=== PATIENT | female | born 1995 | race Two or more races ===

== ENCOUNTER 2017-11-07 00:02 | Emergency (ER) | payer OTHER ==
[2017-11-07 01:10] VITALS: BP 113/76; PULSE 80; TEMP 98.1; BMI 27.4
[2017-11-07] MEDS ORDERED: SODIUM CHLORIDE 0.9% 500 ML INFUS.BAG IV ONE (02:08)
[2017-11-07] MEDS ORDERED: METOCLOPRAMIDE HCL INJECTION 10 MG/2 ML VIAL IVPB ONE (02:08)
--- NOTE | 2017-11-07 02:20 | PDOC ---
History of Present Illness - General Chief Complaint: Weakness Stated Complaint: WEAKNESS, BLOOD PRESSURE PROBLEM Time Seen by Provider: 11/07/17 01:28 History Source: Patient - History of Present Illness Initial Comments: 11/07/17 03:11 21 year old female Visiting [place] from [place] reports that she is been to [facility] yesterday for same and similar complaint. Patient reports that yesterday she was feeling headache generalized numbness of body, patient reports that she has multiple stresses in her life currently with 2 children under 3 years old. Patient had a completely negative workup at [place] and was prescribed Xanax for anxiety. Past History - Past Medical History Allergies/Adverse Reactions: Allergies Allergy/AdvReac Type Severity Reaction Status Date / Time No Known Allergies Allergy Verified 11/07/17 01:09 Home Medications: Ambulatory Orders NK [No Known Home Medication] 12/11/15 Anemia: Yes Asthma: Yes Cancer: No Cardiac Disorders: No COPD: No Diabetes: No HTN: No Seizures: No Thyroid Disease: No - Immunization History Immunization Up to Date: Yes - Suicide/Smoking/Psychosocial Hx Smoking History: Never smoked Have you smoked in the past 12 months: No Information on smoking cessation initiated: No Hx Alcohol Use: No Drug/Substance Use Hx: No Substance Use Type: None Hx Substance Use Treatment: No *Physical Exam - Vital Signs Last Vital Signs Temp Pulse Resp BP Pulse Ox 98.1 F 80 20 113/76 99 11/07/17 00:45 11/07/17 00:45 11/07/17 00:45 11/07/17 00:45 11/07/17 00:45 - Physical Exam General Appearance: Yes: Appropriately Dressed Medical Decision Making - Medical Decision Making 11/07/17 03:48 patient now feels better, will d.c home *DC/Admit/Observation/Transfer Diagnosis at time of Disposition: Headache Qualifiers: Headache type: tension-type Headache chronicity pattern: unspecified pattern Intractability: not intractable Qualified Code(s): G44.209 - Tension-type headache, unspecified, not intractable - Discharge Dispostion Disposition: HOME - Referrals Referrals: ON STAFF,NOT [Primary Care Provider] - - Patient Instructions Printed Discharge Instructions: Tension Headache Additional Instructions: drink plenty of fluids. take tylenol or ibuprofen every 6 hours as needed for pain. follow up with your doctor as soon as possible. return to the ER if symptoms worsen. - Post Discharge Activity Forms/Work/School Notes: Back to Work
[2017-11-07 02:46] LABS: HCG,QUALITATIVE URINE NEGATIVE
[2017-11-07] MEDS ORDERED: METOCLOPRAMIDE HCL INJECTION 10 MG/2 ML VIAL ONE (02:51)
[2017-11-07 02:52] LABS: URINE APPEARANCE SLCLOUDY; URINE BILIRUBIN NEGATIVE (<2.0 mg/dL); URINE COLOR YELLOW; URINE GLUCOSE (UA) NEGATIVE (NEGATIVE); URINE KETONE NEGATIVE (NEGATIVE); URINE LEUK ESTERASE NEGATIVE (NEGATIVE); URINE NITRITE NEGATIVE (NEGATIVE); URINE PROTEIN NEGATIVE (NEGATIVE); URINE UROBILINOGEN 4.0 E.U/dl mg/dL (0.2-1.0)
[2017-11-07 02:58] LABS: EPI CELLS RARE /HPF (FEW); URINE BACTERIA FEW /hpf (NONE SEEN); URINE MUCUS RARE
[2017-11-07] MEDS ORDERED: KETOROLAC TROMETHAMINE 30 MG/1 ML VIAL IVPUSH ONE (03:02)
[2017-11-07] MEDS ORDERED: KETOROLAC TROMETHAMINE 30 MG/1 ML VIAL ONE (03:06)
== END 2017-11-07 04:13 | disposition home or self-care (01) ==
LOC: JER 00:02
PROC: 3E0337Z Introduction of Electrolytic and Water Balance Substance into Peripheral Vein, Percutaneous Approach (ICD-10-PCS; principal; 2017-11-07)
PROC: 3E0333Z Introduction of Anti-inflammatory into Peripheral Vein, Percutaneous Approach (ICD-10-PCS; 2017-11-07)
PROC: 3E033GC Introduction of Other Therapeutic Substance into Peripheral Vein, Percutaneous Approach (ICD-10-PCS; 2017-11-07)
DX: G44.209 Tension-type headache, unspecified, not intractable (principal); J45.909 Unspecified asthma, uncomplicated; D64.9 Anemia, unspecified
CPT/HCPCS: 81003; 81015; 84703; 99284-25

== ENCOUNTER 2019-12-02 13:12 | Inpatient (IN) | payer OTHER ==
[2019-12-02 14:01] VITALS: BMI 47.4
[2019-12-02 14:26] LABS: BASO % 0.2 % (0-2.0); EOS % 2.5 % (0-4.5); HEMATOCRIT 29.3 % (32.4-45.2); HEMOGLOBIN 9.5 GM/dL (10.7-15.3); MCHC 32.6 g/dl (32.0-36.0); MEAN CELL VOLUME 82.8 fl (80-96); MEAN PLT VOLUME 9.5 fl (7.5-11.1); MONO % 5.4 % (3.8-10.2); NEUT % 76.9 % (42.8-82.8); PLATELET COUNT 171 K/MM3 (134-434); RBC 3.53 M/mm3 (3.60-5.2); RDW 17.8 % (11.6-15.6); WHITE BLOOD COUNT 9.1 K/mm3 (4.0-10.0)
[2019-12-02 14:34] LABS: INR 0.97 (0.83-1.09); PROTHROMBIN TIME (PATIENT) 11.4 SEC (9.7-13.0)
[2019-12-02 14:36] LABS: ACTIVATED PTT 28.1 SECONDS (25.2-36.5)
[2019-12-02 14:50] LABS: ALBUMIN 2.5 g/dl (3.4-5.0); BILIRUBIN,TOTAL 0.6 mg/dL (0.2-1); BLOOD UREA NITROGEN 9.6 mg/dL (7-18); CALCIUM 8.5 mg/dL (8.5-10.1); CREATININE 0.6 mg/dL (0.55-1.3); POTASSIUM 3.6 mmol/L (3.5-5.1); TOT PROT 5.9 g/dl (6.4-8.2)
--- NOTE | 2019-12-02 15:07 | HP ---
Past Medical History - Primary Care Physician PCP:: Braulio Smith E - Admission Chief Complaint: contractions History of Present Illness: Late transfer to my practice, high risk . Previous c/s x 2. GDM. Observed on monitor. Ctx q 4 min. Pt. feels them as painful. 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 No: Ascites, Cancer, Constipation, Crohn's Disease, Diverticulitis, Esophageal Varices, Gastritis, GERD, GI Bleed, Hemorrhoids, Hiatal Hernia, Inflamatory Bowel Disease, Irritable Bowel Disease, Pancreatitis, Peptic Ulcer Disease, Ulcerative Colitis, Other Hepatobiliary: No: Cirrhosis, Cholelithiasis, Cholecystitis, Choledocholithiasis, Hepatitis A, Hepatitis B, Hepatitis C, Other Renal/: No: Renal Failure, Renal Inusuff, BPH, Cancer, Hematuria, Hemodialysis, Neurogenic Bladder, Renal Calculi, UTI, Other Reproductive: No: Ectopic , Endometriosis, Fibroids, PID, Polycystic Ovary Syndrome, Postmenopausal, Other ...: 5 ...Para: 2 ...Term: 2 ...Spon : 1 ...Induced : 1 ...Living Children: 2 ... Weeks Gestation by Dates: 38.4 ...EDC by Debbie: 12/10/19 Heme/Onc: Yes: Anemia. No: B12 Deficiency, Bleeding Disorder, Cancer, Current Chemotherapy, Current Radiation Therapy, Hemochromatosis, Hypercoaguable State, Myeloproliferative Synd, Sickle Cell Disease, Sickle Cell Trait, Thrombocytopenia, Other Infectious Disease: No: AIDS, C-Diff, Herpes Zoster, HIV, MRSA, STD's, T uberculosis, VREF, Other Psych: No: Addictions, Anxiety, Bipolar, Depression, Panic, Psychosis, Schizophrenia, Other Musculoskeletal: No: Bursitis, Chronic low back pain, Hemiparesis, Hemiplegia, Osteoarthritis, Paraplegia, Other Rheumatology: No: Fibromyalgia, Gout, Lupus, Rheumatoid Arthritis, Sarcoidosis, Vasculitis, Other ENT: No: Allergic Rhinitis, Sinusitis, Other Endocrine: Yes: Other (Obesity) Dermatology: No: Basal Cell, Cellulitis, Eczema, Melanoma, Psoriasis, Squamous Cell, Other - Past Surgical History Past Surgical History: Yes: None Hx Myomectomy: No Hx Transabdominal Cerclage: No - Smoking History Smoking history: Never smoked Have you smoked in the past 12 months: No - Alcohol/Substance Use Hx Alcohol Use: No History of Substance Use: reports: None - Social History ADL: Independent History of Recent Travel: No Home Medications - Allergies Allergies/Adverse Reactions: Allergies Allergy/AdvReac Type Severity Reaction Status Date / Time No Known Allergies Allergy Verified 12/02/19 15:51 - Home Medications Home Medications: Ambulatory Orders Mv-Mn/Iron/FA/Herbal/Digestive [ One Tablet] 1 each PO DAILY 11/10/19 Ibuprofen [Motrin -] 600 mg PO Q6H PRN #20 tablet MDD 5 12/03/19 oxyCODONE HCL [Roxicodone -] 5 mg PO Q6H PRN #15 tablet MDD 5 12/03/19 Family Medical History Family History: Unremarkable Review of Systems - Review of Systems Constitutional: reports: No Symptoms Eyes: reports: No Symptoms HENT: reports: No Symptoms Neck: reports: No Symptoms Cardiovascular: reports: No Symptoms Respiratory: reports: No Symptoms Gastrointestinal: reports: No Symptoms Genitourinary: reports: No Symptoms Breasts: reports: No Symptoms Reported Musculoskeletal: reports: No Symptoms Integumentary: reports: No Symptoms Neurological: reports: No Symptoms Endocrine: reports: No Symptoms Hematology/Lymphatic: reports: No Symptoms Psychiatric: reports: No Symptoms Physical Exam - Maternity Vital Signs: Vital Signs Temperature 98.3 F 12/02/19 14:00 Pulse Rate 76 12/02/19 14:00 Respiratory Rate 18 12/02/19 14:00 Blood Pressure 148/57 L 12/02/19 14:00 O2 Sat by Pulse Oximetry (%) Constitutional: Yes: Well Nourished, No Distress, Calm Eyes: Yes: WNL, Conjunctiva Clear, EOM Intact HENT: Yes: WNL, Atraumatic, Normocephalic Neck: Yes: WNL, Supple, Trachea Midline Cardiovascular: Yes: WNL, Regular Rate and Rhythm Breast(s): Yes: WNL - Abdominal Exam/OB Fundal Height: 42 Number of Fetuses: Single Presentation: Vertex Contractions: Yes Regularity: Regular Intensity: Mild/Mod Monitor Mode: External Heart Rate (range): 135 Heart Rate Location: [facility] Category: I Accelerations: Uniform Decelerations: None - Vaginal Exam/OB Vaginal Bleeding: No Speculum Exam: No Dilatation (cm): 0 Effacement (%): 20 Amniotic Membrane Status: Intact Presentation: Vertex/Position Station: -2 - Physical Exam Musculoskeletal: Yes: WNL Extremities: Yes: WNL Integumentary: Yes: WNL ...Motor Strength: WNL Psychiatric: Yes: WNL - Labs Lab Results: CBC, BMP 12/02/19 13:54 12/02/19 13:54 Problem List - Problems (1) Term Code(s): Z34.90 - ENCNTR FOR SUPRVSN OF NORMAL , UNSP, UNSP TRIMESTER (2) Active labor at term Code(s): [id number] - (3) Previous section Code(s): Z98.891 - HISTORY OF UTERINE SCAR FROM PREVIOUS SURGERY Assessment/Plan Term gestation in early labor. Fully discussed w pt. For repeat c/section. Procedure, technique, all risks and possible complications discussed with pt. who understands and consents. Consent signed.
[2019-12-02] MEDS ORDERED: ELECTROLYTE-148 SOLN 500 ML IV ONE (15:30)
[2019-12-02] MEDS ORDERED: CITRIC ACID/SODIUM CITRATE 30 ML UNIT-DOSE CUP PO ONE (15:30)
[2019-12-02] MEDS ORDERED: ONDANSETRON 4 MG/2 ML VIAL IVPUSH PRN (16:48)
[2019-12-02] MEDS ORDERED: morphine SULFATE/PF 0.5 MG/ML (2cc Syringe - QUVA) EP ONE (16:48)
[2019-12-02] MEDS ORDERED: morphine SULFATE/PF 0.5 MG/ML (2cc Syringe - QUVA) ONE (17:18)
[2019-12-02] MEDS ORDERED: ePHEDrine SULFATE 50 MG/1 ML AMPULE ONE (17:20)
[2019-12-02] MEDS ORDERED: OXYTOCIN 10 UNITS/ML VIAL ONE (17:36)
--- NOTE | 2019-12-02 18:24 | PN ---
Delivery - Delivery Section: Repeat, Low Flap Transverse Type of Anesthesia: Spinal EBL (cc): 600 Delivery, Single - Stages of Labor Date of Delivery: 12/02/19 Time of Delivery: 17:41 Time Placenta Delivered: 17:42 - Condition of Infant Palliative Senior Np/Product Marketing Programs Manager Present: Yes Name: Basil Castellanos Gender: Female Weight: 7 lb 8 oz Position: OA Total Hours ROM (Hrs/Mins): 1M - 1 Minute Total Score: 9 5 Minutes Total Score: 9 - [place] Feeding Plan Initial Plan: Elected not to breastfeed exclusively throughout hospitalization Remarks - Remarks Remarks: Uneventful repeat c/section. Keloid removed. DAVID No complications.
[2019-12-02] MEDS ORDERED: OXYTOCIN 20 UNITS in 0.9% NS 20 UNIT/1,000 ML INFUS.BAG IV ONE (18:36)
[2019-12-02] MEDS ORDERED: METHYLERGONOVINE MALEATE 0.2 MG/1 ML AMP IM PRN (18:38)
[2019-12-02] MEDS ORDERED: IBUPROFEN 800 MG/8 ML IJ IVPB PRN (18:38)
[2019-12-02] MEDS ORDERED: ACETAMINOPHEN 1000 MG/100 ML VIAL (NON FORMULARY) IVPB PRN (18:42)
[2019-12-02] MEDS ORDERED: OXYTOCIN 20 UNITS in 0.9% NS 1000 ML INFUS.BAG IV ONE (18:43)
[2019-12-02] MEDS ORDERED: OXYTOCIN 20 UNITS in 0.9% NS 20 UNIT/1,000 ML INFUS.BAG IV SCH (19:00)
--- NOTE | 2019-12-02 20:31 | SURG ---
Surgery Quality Measurement Specialist Note Quality Measurement Specialist: Gordo Martinez PA-C Date of Service: 12/02/19 Diagnosis: Full term Procedure: Repeat, Low Flap Transverse section I was present for the entirety of the operative procedure. For further detail, please refer to operative report. Visit type - Case Type Case Type: Scheduled - New patient This patient is new to me today: Yes Date on this admission: 12/02/19
--- NOTE | 2019-12-03 00:29 | OP ---
DATE OF OPERATION: 12/02/2019 PREOPERATIVE DIAGNOSIS: 1. Intrauterine 38 weeks and 6 days. 2. Previous section x2. 3. Early labor. POSTOPERATIVE DIAGNOSIS: 1. Intrauterine 38 weeks and 6 days. 2. Previous section x2. 3. Early labor. 4. Omental peritoneal adhesions. 5. Keloid. 6. Low segment "window." SURGEON: Phil Toledo MD. SOCIAL MEDIA MANAGER: IZAIAH Garrido. ANESTHESIOLOGIST: Lopez He MD. GLAZIER APPRENTICE: Basil Castellanos MD. PROCEDURE AND FINDINGS: Under excellent spinal block, in dorsal supine position, with mild left lateral tilt, routine prep and drape was carried out. Old keloid resulting from 2 previous incisions was excised and excision was carried out in a wedge-like fashion down to the fascia. Fascia was divided transversely, and rectus muscles were dissected off the fascia, and in the midline. The peritoneum was entered in the upper part of the incision and extended vertically. Term uterus was noted. Adnexa were subsequently seen and were within normal limits. A low segment was distended with clear window measuring about 1 cm with amniotic fluid showing through it. Bladder flap was incised transversely and peeled off the lower segment. Hysterotomy was done through the uterine window and extended laterally using bandage scissors. Amniotic sac was ruptured, and clear amniotic fluid was noted. Infant was then delivered through the hysterotomy. It was a girl who cried and breathed spontaneously. Cord was divided, and baby was handed over to the boat dispatcher. Cord was clamped with delay. Apgars were 9 and 9. Birthweight was 7 pounds, 8 ounces. Placenta was removed from the uterine cavity, and cavity was cleaned. Cervical os was dilated. Hysterotomy was closed with continuous running Biosyn 0 interlocking suture. Closure was excellent, and hemostasis was complete. Uterus was placed in the abdomen. Omental adhesions were noted upon entry to the anterior peritoneal wall were then identified and carefully divided. Bleeding points were secured. Omentum was set free. Count was correct. Abdomen was closed in layers with peritoneum was closed with Biosyn 2-0 suture. Fascia was closed with continuous running Vicryl 1 suture. Subcutaneous tissue was approximated with 3-0 Vicryl interrupted sutures and skin was approximated with V-Loc 3-0 running sutures and Steri-Strips. Blood loss was 600 mL. Patient withstood the procedure very well and was transferred to the PACU, comfortable and stable. PHIL TOLEDO MD [id number] MTDD
[2019-12-03] MEDS: CEFAZOLIN 1 GM/D5W 1 GM/50 ML BAG IVPB SCH ×3 (02:14→17:15)
--- NOTE | 2019-12-03 09:06 | PN ---
Progress Note, Physician Chief Complaint: s/p c section post op day one History of Present Illness: under spinal anesthesia with duramorph for post op analgesia - Current Medication List Current Medications: Active Medications Acetaminophen (Ofirmev Injection -) 1,000 mg IVPB Q6H PRN PRN Reason: PAIN LEVEL 4 - 6 Stop: 12/03/19 18:42 Bisacodyl (Dulcolax Suppository -) 10 mg RC PRN PRN PRN Reason: CONSTIPATION Diphenhydramine HCl (Benadryl Injection -) 25 mg IVPUSH Q4H PRN PRN Reason: Pruritis Cefazolin Sodium (Ancef 1 Gm Premixed Ivpb -) 1 gm in 50 mls @ 100 mls/hr IVPB Q8H-IV YOBANI Stop: 12/04/19 01:59 Last Admin: 12/03/19 02:14 Dose: 100 mls/hr Documented by: Oxytocin/Sodium Chloride (Normal Saline+20 Units Oxytocin -) 20 unit in 1,000 mls @ 125 mls/hr IV ASDIR YOBANI Ibuprofen (Motrin -) 600 mg PO Q4H PRN PRN Reason: PAIN LEVEL 1 - 3 Ibuprofen (Caldolor Injection -) 800 mg IVPB Q8H PRN PRN Reason: PAIN LEVEL 1-5 Last Admin: 12/03/19 00:48 Dose: 800 mg Documented by: Methylergonovine Maleate (Methergine Injection -) 0.2 mg IM Q4H PRN PRN Reason: Excessive Bleeding (L&D) Ondansetron HCl (Zofran Injection) 4 mg IVPUSH Q4H PRN PRN Reason: NAUSEA Simethicone (Mylicon -) 80 mg PO Q4H PRN PRN Reason: GAS - Objective Vital Signs: Vital Signs Temperature 98.1 F 12/03/19 06:06 Pulse Rate 91 H 12/03/19 06:06 Respiratory Rate 18 12/03/19 07:00 Blood Pressure 135/81 12/03/19 06:06 O2 Sat by Pulse Oximetry (%) 100 12/02/19 20:00 Constitutional: Yes: Well Nourished Cardiovascular: Yes: WNL Respiratory: Yes: WNL Gastrointestinal: Yes: WNL Labs: CBC, BMP 12/02/19 13:54 INR, PTT INR 0.97 (0.83-1.09) 12/02/19 13:54 Assessment/Plan Noadverse effects of anesthetic, pain controlled, no nausea or vomiting, dept of anesthesia will sign off care at this time
[2019-12-03 09:14] LABS: BASO % 0.1 % (0-2.0); HEMATOCRIT 25.4 % (32.4-45.2); HEMOGLOBIN 8.2 GM/dL (10.7-15.3); LYMPH % 10.1 % (8-40); MCH 27.1 pg (25.7-33.7); MCHC 32.2 g/dl (32.0-36.0); MEAN PLT VOLUME 9.9 fl (7.5-11.1); MONO % 7.4 % (3.8-10.2); NEUT % 81.4 % (42.8-82.8); PLATELET COUNT 131 K/MM3 (134-434); RBC 3.03 M/mm3 (3.60-5.2); RDW 17.5 % (11.6-15.6); WHITE BLOOD COUNT 8.1 K/mm3 (4.0-10.0)
[2019-12-03] MEDS: SIMETHICONE 80 MG TAB.CHEW (FP) PO PRN ×2 (09:41→21:43)
[2019-12-03] MEDS: IBUPROFEN 600 MG TABLET (FP) PO PRN ×2 (09:41→21:42)
--- NOTE | 2019-12-03 11:10 | PN ---
Progress Note (short form) - Note Progress Note: POD 1, s/p c section Pt seen and examined. Reports she is doing well. No pain yet (likely due to duramorph spinal), has not been oob. black in place. Tolerating regaulr diet. Denies cp/sob, n/v/d. Vital Signs Temp 98.6 F 12/03/19 10:00 Pulse 89 12/03/19 10:00 Resp 18 12/03/19 10:00 BP 120/76 12/03/19 10:00 Pulse Ox 100 12/02/19 20:00 Intake & Output 12/02/19 12/02/19 12/03/19 11:59 23:59 11:59 Intake Total 1500 1300 Output Total 300 Balance 1500 1000 Weight 285 lb Intake: IV 1500 1300 NORMAL SALINE+20 UNITS 500 1300 OXYTOCIN - 20 unit In 1, 000 ml @ 125 mls/hr IV ASDIR YOBANI Rx#:[id number] Plasma-Lyte 148 - 500 ml 1000 @ 250 mls/hr IV ONCE ONE Rx#:[id number] Output: Urine 300 Black 300 Other: Voiding Method Indwelling Catheter Toilet Height 5 ft 5 in Body Mass Index (BMI) 47.4 Weight 7 lb 8 oz Length 19 in CBC, BMP 12/03/19 07:58 12/02/19 13:54 Gen: awake, alert, nad Resp: unlabored on RA Abdo: soft, + ttp at inicision site (appropriate to status), steri-strips c/d/i, no bleeding noted, no erythema, no drainage ExT; b/l calf soft/nt/ no edema noted A/P: 23 y/o F w/ no significant PMHx a/w early labor, now POD 1, s/p repeat c section Afebrile, vss -Black out this AM, tov -Oob as tolerated -Reg diet -Pain control -BF support/oracle distribution consultant prn -bowel regimen -zofran prn n/v -dvt prophylaxis with b/l scds and early ambulation -scripts sent to [facility] pharmacy d/w attending Dr Smith
[2019-12-03] MEDS ORDERED: oxyCODONE HCL 5 MG TABLET PO PRN (11:13)
[2019-12-03] MEDS ORDERED: BISACODYL 10 MG SUPP.RECT RC PRN (18:38)
--- NOTE | 2019-12-03 21:34 | PN ---
Progress Note (short form) - Note Progress Note: POD # 1. Doing well.Pain under control. No BM yet. May shower. Problem List - Problems (1) Term Code(s): Z34.90 - ENCNTR FOR SUPRVSN OF NORMAL , UNSP, UNSP TRIMESTER (2) Active labor at term Code(s): [id number] - (3) Previous section Code(s): Z98.891 - HISTORY OF UTERINE SCAR FROM PREVIOUS SURGERY
[2019-12-04] MEDS: SIMETHICONE 80 MG TAB.CHEW (FP) PO PRN ×2 (05:16→10:51)
[2019-12-04] MEDS: IBUPROFEN 600 MG TABLET (FP) PO PRN ×2 (05:16→10:51)
--- NOTE | 2019-12-04 07:28 | PN ---
Progress Note (short form) - Note Progress Note: POD # 2. Doing well. Feels much better. Flatus pos. OOB, showered. PE OK. Abd. soft. Incision clean and dry. No CVA, extrem. T. I/P: good recovery. Problem List - Problems (1) Term Code(s): Z34.90 - ENCNTR FOR SUPRVSN OF NORMAL , UNSP, UNSP TRIMESTER (2) Active labor at term Code(s): [id number] - (3) Previous section Code(s): Z98.891 - HISTORY OF UTERINE SCAR FROM PREVIOUS SURGERY
[2019-12-04] MEDS ORDERED: ACETAMINOPHEN 325 MG TABLET (FP) PO PRN (07:30)
--- NOTE | 2019-12-04 07:41 | DS ---
Physical Exam-TECHNICAL SUPPORT ENGINEER Vital Signs: Vital Signs Temperature 98.0 F 12/03/19 21:02 Pulse Rate 100 H 12/03/19 21:02 Respiratory Rate 20 12/03/19 21:02 Blood Pressure 133/78 12/03/19 21:02 O2 Sat by Pulse Oximetry (%) 98 12/03/19 11:50 Constitutional: Yes: Well Nourished, No Distress, Calm Eyes: Yes: WNL, Conjunctiva Clear, EOM Intact HENT: Yes: WNL, Atraumatic, Normocephalic Neck: Yes: WNL, Supple, Trachea Midline Cardiovascular: Yes: WNL, Regular Rate and Rhythm Respiratory: Yes: WNL, Regular, CTA Bilaterally Gastrointestinal: Yes: WNL ...Rectal Exam: Yes: WNL Renal/: Yes: WNL Uterus: Yes: Normal, Firm ....Post : Yes: Slight lochia rubra (Incision clean and dry.) Breast(s): Yes: WNL Musculoskeletal: Yes: WNL Extremities: Yes: WNL Integumentary: Yes: WNL Neurological: Yes: WNL, Alert, Oriented ...Motor Strength: WNL Psychiatric: Yes: WNL, Alert, Oriented Labs: CBC, BMP 12/03/19 07:58 12/02/19 13:54 Delivery - Delivery Section: Repeat, Low Flap Transverse Type of Anesthesia: Spinal EBL (cc): 600 Delivery, Single - Stages of Labor Date of Delivery: 12/02/19 Time of Delivery: 17:41 Time Placenta Delivered: 17:42 - Condition of Judicial Clerk/Roller Leveler Present: Yes Name: Basil Castellanos Infant Gender: Female Weight: 7 lb 8 oz Position: OA Total Hours ROM (Hrs/Mins): 1M - 1 Minute Total Score: 9 5 Minutes Total Score: 9 - [place] Feeding Plan Initial Plan: Elected not to breastfeed exclusively throughout hospitalization Remarks - Remarks Remarks: Good recovery. Stable, no need for transfusion. Trying to nurse. Discharge Summary Problems reviewed: Yes Reason For Visit: Current Active Problems Active labor at term (Acute) Previous section (Acute) Term (Acute) Condition: Stable - Instructions Diet, Activity, Other Instructions: Discharge Instructions: Wound care You have steri-strips over your incision. Leave these in place. They will peel off in the next 7 to 10 days. Do Not peel them off. You may shower after surgery. If there are tapes present on the skin, they can get wet. When showering, allow soap and water to run over the incision, do not scrub the incision. Pat dry well after showering. You may continue to use the abdominal binder for comfort. When coughing, sneezing or getting up it is helpful to hold a pillow against the incision for comfort. Diet There are no dietary restrictions. Eat healthy, high-fiber foods. Drink 6 to 8 glasses of liquid each day. This will assist in keeping your bowels are regular. You may want to take an over the counter stool softener such as DulcoEase as constipation is a common side effect of narcotic pain medications. Activity: No heavy lifting, exercise or strenuous activity until cleared by your doctor. Do not lift anything heavier than the baby until otherwise cleared by your doct or. Dont try to take care of anyone other than the baby and yourself. Get lots of rest, take naps in throughout the day. Increase your activity level bit by bit. We recommend postsurgical breathing and coughing exercises to help keep your lungs clear. You may take the incentive spirometer home with you and continue using it. Do not drive until cleared by your doctor. No sexual activity until cleared by your doctor. The best exercise is walking. Small amounts done frequently are best. It is best to stay mobile to avoid development of blood clots in your legs. Medications: Pain management You may take Tylenol (Acetaminophen) or Ibuprofen (for example, Motrin, Advil etc) for mild pain. Any pain prescription medication ordered should be taken as prescribed for moderate to severe pain. Please take as directed. If the prescribed dosage is not controlling your pain, please contact Dr Smith. Do not drive, drink alcohol or operate heavy machinery while taking narcotic pain medications. You may Acetaminophen and Ibuprofen alternating. For example, you can take Ac etaminophen at 10AM followed by Ibuprofen at 1pm, followed by Acetaminophen again at 4pm. We recommend keeping track of the dosage and time you take each to ensure you do not exceed the area representative's recommended daily dosage. Take Ibuprofen with food, Acetaminophen may be taken on an empty stomach. Do not exceed 4g (4000mg) of Acetaminophen in 24 hours. Do not exceed 3000mg Ibuprofen in 24 hours. Follow up: Please call the office for a follow up appointment in Call your doctor immediately if you have: Fever of 100.4F (38C) or higher Redness, pain, or drainage at your incision site Bleeding that requires a new sanitary pad every hour Severe pain in the abdomen Pain or urgency with urination Foul odor from vaginal discharge Trouble urinating or emptying your bladder No bowel movement within 1 week after the of your baby Swollen, red, painful area in the leg Appearance of rash or hives Sore, red, painful area on the breasts that may come with flu-like symptoms Feelings of anxiety, panic, and/or depression Referrals: Braulio Smith MD [Staff Physician] - Disposition: HOME - Home Medications Comprehensive Discharge Medication List: Ambulatory Orders Mv-Mn/Iron/FA/Herbal/Digestive [ One Tablet] 1 each PO DAILY 11/10/19 Ibuprofen [Motrin -] 600 mg PO Q6H PRN #20 tablet MDD 5 12/03/19 oxyCODONE HCL [Roxicodone -] 5 mg PO Q6H PRN #15 tablet MDD 5 12/03/19
[2019-12-04 08:58] VITALS: BP 122/78; PULSE 84; TEMP 98.1
--- NOTE | 2019-12-08 17:35 | PATH ---
Surgical Pathology Report Patient Name: SARAI HIDALGO Med. Rec. 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 Electronically Signed Mehreen Otero M.D. Gross Description The specimen is received fresh labeled placenta and is a 552 gram, 17.5 x 17.0 x 2.7 cm. placenta with attached membranes and umbilical cord. The attached membranes are romero, translucent with focal opacities and insert marginally. The umbilical cord measures 54 cm. in length and averages 0.9 cm. in diameter. The cord inserts centrally. No true knots or strictures are identified. Cut surface of the umbilical cord reveals 3 vessels. The surface is lal blue with moderate fibrin deposition and appropriate caliber vessels. The maternal surface is red-brown with focal defects. Sectioning reveals red-brown, spongy parenchyma. No lesions are identified. Strategic Debriefing Specialist sections are submitted in three cassettes as follows: 1- membrane rolls and umbilical cord; 2-3- full thickness sections of placenta. /12/07/2019 [facility]/12/07/2019
== END 2019-12-04 15:55 | disposition home or self-care (01) | DRG 540 ==
LOC: JLDR 13:12 → J3W 21:43
PROVIDERS: ADMIT Specialist; ATTEND Specialist
PROC: 10D00Z1 Extraction of Products of Conception, Low, Open Approach (ICD-10-PCS; principal; 2019-12-02)
PROC: 0DNU0ZZ Release Omentum, Open Approach (ICD-10-PCS; 2019-12-02)
DX: O24.420 Gestational diabetes mellitus in childbirth, diet controlled (principal); Z3A.38 38 weeks gestation of pregnancy; Z37.0 Single live birth; O60.14X0 Preterm labor third trimester with preterm delivery third trimester, not applicable or unspecified; O99.214 Obesity complicating childbirth; E66.01 Morbid (severe) obesity due to excess calories; O99.02 Anemia complicating childbirth; O99.03 Anemia complicating the puerperium; D64.9 Anemia, unspecified; Z98.891 History of uterine scar from previous surgery; Z87.09 Personal history of other diseases of the respiratory system; O99.62 Diseases of the digestive system complicating childbirth; K66.0 Peritoneal adhesions (postprocedural) (postinfection)
CPT/HCPCS: 36415; 80048; 80053; 85025; 85610; 85730; 86762; 86780; 86850; 86900; 86901; 87340; 87389; 88307-TC

== ENCOUNTER 2020-07-25 20:20 | Emergency (ER) | payer OTHER ==
[2020-07-25 20:37] VITALS: BP 127/74; PULSE 81; BMI 43.2
[2020-07-25 20:38] VITALS: TEMP 98.3
[2020-07-25 22:54] LABS: BASO % 0.4 % (0-2.0); EOS % 6.6 % (0-4.5); HEMATOCRIT 33.4 % (32.4-45.2); HEMOGLOBIN 10.9 GM/dL (10.7-15.3); LYMPH % 18.8 % (8-40); MCHC 32.7 g/dl (32.0-36.0); MEAN CELL VOLUME 76.5 fl (80-96); MEAN PLT VOLUME 9.4 fl (7.5-11.1); MONO % 4.4 % (3.8-10.2); NEUT % 69.8 % (42.8-82.8); PLATELET COUNT 208 K/MM3 (134-434); RBC 4.36 M/mm3 (3.60-5.2); RDW 18.3 % (11.6-15.6); WHITE BLOOD COUNT 9.9 K/mm3 (4.0-10.0)
[2020-07-25 23:50] LABS: URINE APPEARANCE CLEAR; URINE BILIRUBIN NEGATIVE (NEGATIVE); URINE COLOR YELLOW; URINE GLUCOSE (UA) NEGATIVE (NEGATIVE); URINE KETONE NEGATIVE (NEGATIVE); URINE LEUK ESTERASE NEGATIVE (NEGATIVE); URINE NITRITE NEGATIVE (NEGATIVE); URINE PROTEIN NEGATIVE (NEGATIVE); URINE UROBILINOGEN 0.2 mg/dL (0.2-1.0)
== END 2020-07-26 00:42 | disposition home or self-care (01) ==
LOC: JER 20:20
DX: N93.8 Other specified abnormal uterine and vaginal bleeding (principal)
CPT/HCPCS: 36415; 76817-TC; 81003; 84702; 85025; 86850; 86900; 86901; 87086; 99284-25